=== PATIENT | female | born 1995 | race Caucasian/White ===

== ENCOUNTER 2017-01-07 08:27 | Emergency (ER) | payer MEDICAID ==
[~2017-01-07] VITALS: Ht 165.1 cm; Wt 76.7 kg
[~2017-01-07 08:27] MED LIST: AUGMENTIN1 TA2 PO; BACTRIM DS 8001 TA1 PO; BENADRYL EXTRA1 CRE TP; DIFLUCAN150 MG PO; ETODOLAC400 MG PO; FLEXERIL10 MG PO; KEFLEX 500MG.500 MG PO; MOTRIN400 MG PO; NOMEDS XX; PERCOCET 5/3251 EACH PO; PRENATAL PLUS1 TA1 PO; SEPTRA DS 800 M1 TAB PO; ZOFRAN4 MG PO
--- NOTE | 2017-01-07 08:54 | Emergency Room Report ---
History of Present Illness Time Seen by [id number] Presenting Problem in Triage Pt arrived:Walked Presenting Problem:C/O SQUEEZING PAIN ACROSS CHEST AND UPPER ABD THAT BEGAN APPROX 0730 THAT BEGAN APPROX 1 HOUR AFTER TAKING TYLENOL PT STATES BEGAN HAVING PAIN IN EPIGASTRIC AREA BUT PAIN HAS MOVED ALL OVER CHEST AND ABD SINCE BEGINNING. 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 N Clinical Suspician of Infection? N Mental Status: 1 - Regular (Normal Baseline) Sepsis Risk:Low Sepsis Risk Have you (or family members/close friends) recently traveled outside the [place]? N If Yes, where/when: Have you had exposure to infectious disease within the past month? N TB? Other? Specify: Source patient, RN notes reviewed, RN/MD Exam Limitations no limitations Comment This is a 21-year-old female arriving to the emergency room with midsternal chest pain, that started approximately 30 minutes prior to arrival. Patient stated that she had a panic attack and she was stuck in traffic in [place], at time of said events. She describes the pain as midsternal, radiating to both shoulders, worse with deep inspiration, associated with palpitations and shortness of breath. As the mother fed the patient stated that she has had multiple similar episodes in the past, over the stretcher of several years, but this is the first time she sought medical care for her chest pain. Her PCP wanted to refer her for a cardiology evaluation, per patient as well. Patient has not seen a automotive tire worker yet ALLERGIES Coded Allergies: morphine (HALLUCINATIONS, "PAIN ATTACKS" 01/07/17) Home Medications Reported Medications No Known Home Medications History Medical History General CAD? No Angina: No [place]: No Hypertension? Yes Hyperlipidemia? No CHF? No DVT? No PE? No COPD? No Asthma? No Anemia? No GERD? No Gastric ulcers? No GI Bleed? No Hernia? No Thyroid Problems? No Hypothyroidism? No CVA? No Seizures? No Diabetes? No Renal Insuffiency? No End Stage Renal Disease? No UTI? Yes Stones? Yes BPH? No GB Disease: Yes Nephritic Syndrome? No Asplenia? No Hepatitis? No Sickle Cell Disease? No Arthritis? No Migraines? No Cataracts? No Glaucoma? No MRSA? No HIV? No TB? No Anxiety? No Depression? No Cancer? No More? No Immunization Hx DT/Tetanus 1-4 YRS Flu Refused Pneumonia Never Had Surgical Hx Previous Surgery?Y X1 WISDOM TEETH CHOLEYCYSTECTOMY [place] Hx LMP 2 Months Ago Family History Family Hx Diabetes No CAD No Hypertension No Hyperlipidemia No Cancer Yes TB No Social History Smoking Hx Smoker: Current Every Day Smoker Tobacco: Yes Type Cigarettes Packs/day < 1 Pack Alcohol Alcohol: Yes Review of Systems All Other Systems Reviewed and Negative Cardiovascular chest pain Physical Exam Vital Signs Vital Signs Date Time Temp Pulse Resp B/P Pulse O2 O2 Flow FiO2 Ox Delivery Rate 01/07 1035 98.4 96 20 106/80 98 01/07 0924 85 18 132/69 97 01/07 0827 98.4 67 18 150/87 100 General Appearance normal appearance, WD/WN Neck normal inspection, non-tender, supple, full range of motion Respiratory Status Yes: trachea midline, chest symmetrical, non tender chest. No: respiratory distress. Lung Sounds bilateral: normal breath sounds, lungs clear. Cardiovascular normal exam, regular rate/rhythm, no peripheral edema, no gallop, no JVD, no murmur, no rub, normal peripheral pulses Gastrointestinal normal bowel sounds, normal exam, non tender, soft, no organomegaly Back normal inspection, no CVA tenderness, no vertebral tenderness Neurologic alert, seat nailer II-XII nml as tested, normal exam, oriented x 3 Mental status normal mood/affect Skin intact, normal color, warm/dry Medical Decision Making LABS/Meds/Orders Pt receiving controlled substance in ED? No Comment On reevaluation patient appears medically stable, clinically improved, with no further symptoms. Advised of results obtained, plan is to discharge her home and have her follow-up with our automotive tire worker, Dr. Gregory Clay within 2 days. Patient understands that she will require additional outpatient workup, an echocardiogram, stress test, etc. in order to reach a final diagnosis or rule out a cardiac issue at this time. Results/Orders Laboratory Tests 01/07/17 0840: B-Natriuretic Peptide < 5 01/07/17 0840: Amylase 58, Lipase 87 01/07/17 0840: Sodium 139, Potassium 3.4 L, Chloride 102, Carbon Dioxide 27, BUN 8, Creatinine 0.7, Estimated Creat Clear 153, Estimated GFR (MDRD) 105, Glucose 91, Calcium 9.0, Total Bilirubin 0.3, AST 12 L, ALT 22, Alkaline Phosphatase 94, Creatine Kinase 66, CK-MB (CK-2) Rel Index 0.8, CK and CKMB Interp 0.5, Troponin I < 0.02 , Total Protein 8.7 H, Albumin 4.1, Globulin 4.6 H, Albumin/Globulin Ratio 0.9 L, D-Dimer < 100, WBC 8.1, RBC 5.12, Hgb 15.0, Hct 44.1, MCV 86.1, RDW 12.5, Plt Count 342, MPV 6.1 L, Gran % 29.5 L, Gran # 2.4, Total Counted 100, Lymphocytes % 63.2 H, Monocytes % 4.0, Eosinophils % 2.6, Basophils % 0.8, Neutrophils 31 L, Lymphocytes (Manual) 57 H, Lymphocytes # 5.1 H, Monocytes ( Manual) 5, Monocytes # 0.3, Eosinophils # 0.2, Eosinophils # (Manual) 7 H, Basophils # 0.1, Platelet Estimate NORMAL, PUBS MCHC 33.9, MCH 29.2 Orders Procedure Date/time Status SERUM , QUAL 01/07 0905 Complete D-DIMER 01/07 0902 Complete BRAIN NATRIURETIC PEPTIDE 01/07 0902 Complete LIPASE 01/07 0901 Complete AMYLASE 01/07 0901 Complete ELECTROCARDIOGRAM REQUEST 01/07 0846 Active IV SALINE LOCK 01/07 0846 Active MOISTURE MACHINE TENDER 01/07 0846 Active URINE 01/07 0846 Complete CBC WITH AUTO DIFF 01/07 0846 Complete CARDIAC ENZYMES 01/07 0846 Complete CHEM 12 PROFILE 01/07 0846 Complete DIFFERENTIAL-WBC 01/07 0840 Complete 12 LEAD EKG-BETZAIDA (INITIAL) 01/07 UNK Active CM/EKG CM/defence force senior officer Rhythm Normal Sinus Rhythm Rate 85 Ectopy No Comments No acute ischemic changes EKG rate, NSR, rhythm, no evid. of ischemic chgs, no ectopy, normal QRS, normal LA, normal EKG, no EKG for comparison, non-spec. ST/Twave chgs, ST elevation, ST depression, LBBB, RBBB, ectopy, abnormal Q waves XRAY/CT/US XRAY/CT/US XRAY chest XR interpretation by reviewed by me Xray Results no infiltrates, normal heart size, normal lung inflation aditya Departure Departure Time of Disposition 1024 Disposition DC Home or Self Care(routine) Clinical Impression Primary Impression: Chest pain Qualifiers: Chest pain type: unspecified Qualified Code: R07.9 - Chest pain, unspecified Condition STABLE Referrals Gregory Clay MD: Today after leaving ER Patient Instructions DI for Chest Pain Additional Instructions Please follow-up with Dr. Gregory Clay, at your earliest convenience. Discharge Counseling Counseled pt/family regarding diagnosis, test results, medications/RX, home care, follow up needs Prescriptions Current Visit Scripts No Known Home Medications ED Critical Care Critical Care No at [phone]
--- NOTE | 2017-01-07 08:54 | Emergency Room Report ---
History of Present Illness Time Seen by [id number] Presenting Problem in Triage Pt arrived:Walked Presenting Problem:C/O SQUEEZING PAIN ACROSS CHEST AND UPPER ABD THAT BEGAN APPROX 0730 THAT BEGAN APPROX 1 HOUR AFTER TAKING TYLENOL PT STATES BEGAN HAVING PAIN IN EPIGASTRIC AREA BUT PAIN HAS MOVED ALL OVER CHEST AND ABD SINCE BEGINNING. 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 N Clinical Suspician of Infection? N Mental Status: 1 - Regular (Normal Baseline) Sepsis Risk:Low Sepsis Risk Have you (or family members/close friends) recently traveled outside the [place]? N If Yes, where/when: Have you had exposure to infectious disease within the past month? N TB? Other? Specify: Source patient, RN notes reviewed, RN/MD Exam Limitations no limitations Comment This is a 21-year-old female arriving to the emergency room with midsternal chest pain, that started approximately 30 minutes prior to arrival. Patient stated that she had a panic attack and she was stuck in traffic in [place], at time of said events. She describes the pain as midsternal, radiating to both shoulders, worse with deep inspiration, associated with palpitations and shortness of breath. As the mother fed the patient stated that she has had multiple similar episodes in the past, over the stretcher of several years, but this is the first time she sought medical care for her chest pain. Her PCP wanted to refer her for a cardiology evaluation, per patient as well. Patient has not seen a sustainability executive director yet ALLERGIES Coded Allergies: morphine (HALLUCINATIONS, "PAIN ATTACKS" 01/07/17) Home Medications Reported Medications No Known Home Medications History Medical History General CAD? No Angina: No [place]: No Hypertension? Yes Hyperlipidemia? No CHF? No DVT? No PE? No COPD? No Asthma? No Anemia? No GERD? No Gastric ulcers? No GI Bleed? No Hernia? No Thyroid Problems? No Hypothyroidism? No CVA? No Seizures? No Diabetes? No Renal Insuffiency? No End Stage Renal Disease? No UTI? Yes Stones? Yes BPH? No GB Disease: Yes Nephritic Syndrome? No Asplenia? No Hepatitis? No Sickle Cell Disease? No Arthritis? No Migraines? No Cataracts? No Glaucoma? No MRSA? No HIV? No TB? No Anxiety? No Depression? No Cancer? No More? 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 LMP 2 Months Ago Family History Family Hx Diabetes No CAD No Hypertension No Hyperlipidemia No Cancer Yes TB No Social History Smoking Hx Smoker: Current Every Day Smoker Tobacco: Yes Type Cigarettes Packs/day < 1 Pack Alcohol Alcohol: Yes Review of Systems All Other Systems Reviewed and Negative Cardiovascular chest pain Physical Exam Vital Signs Vital Signs Date Time Temp Pulse Resp B/P Pulse O2 O2 Flow FiO2 Ox Delivery Rate 01/07 1035 98.4 96 20 106/80 98 01/07 0924 85 18 132/69 97 01/07 0827 98.4 67 18 150/87 100 General Appearance normal appearance, WD/WN Neck normal inspection, non-tender, supple, full range of motion Respiratory Status Yes: trachea midline, chest symmetrical, non tender chest. No: respiratory distress. Lung Sounds bilateral: normal breath sounds, lungs clear. Cardiovascular normal exam, regular rate/rhythm, no peripheral edema, no gallop, no JVD, no murmur, no rub, normal peripheral pulses Gastrointestinal normal bowel sounds, normal exam, non tender, soft, no organomegaly Back normal inspection, no CVA tenderness, no vertebral tenderness Neurologic alert, sonographer II-XII nml as tested, normal exam, oriented x 3 Mental status normal mood/affect Skin intact, normal color, warm/dry Medical Decision Making LABS/Meds/Orders Pt receiving controlled substance in ED? No Comment On reevaluation patient appears medically stable, clinically improved, with no further symptoms. Advised of results obtained, plan is to discharge her home and have her follow-up with our sustainability executive director, Dr. Gregory Clay within 2 days. Patient understands that she will require additional outpatient workup, an echocardiogram, stress test, etc. in order to reach a final diagnosis or rule out a cardiac issue at this time. Results/Orders Laboratory Tests 01/07/17 0840: B-Natriuretic Peptide < 5 01/07/17 0840: Amylase 58, Lipase 87 01/07/17 0840: Sodium 139, Potassium 3.4 L, Chloride 102, Carbon Dioxide 27, BUN 8, Creatinine 0.7, Estimated Creat Clear 153, Estimated GFR (MDRD) 105, Glucose 91, Calcium 9.0, Total Bilirubin 0.3, AST 12 L, ALT 22, Alkaline Phosphatase 94, Creatine Kinase 66, CK-MB (CK-2) Rel Index 0.8, CK and CKMB Interp 0.5, Troponin I < 0.02 , Total Protein 8.7 H, Albumin 4.1, Globulin 4.6 H, Albumin/Globulin Ratio 0.9 L, D-Dimer < 100, WBC 8.1, RBC 5.12, Hgb 15.0, Hct 44.1, MCV 86.1, RDW 12.5, Plt Count 342, MPV 6.1 L, Gran % 29.5 L, Gran # 2.4, Total Counted 100, Lymphocytes % 63.2 H, Monocytes % 4.0, Eosinophils % 2.6, Basophils % 0.8, Neutrophils 31 L, Lymphocytes (Manual) 57 H, Lymphocytes # 5.1 H, Monocytes ( Manual) 5, Monocytes # 0.3, Eosinophils # 0.2, Eosinophils # (Manual) 7 H, Basophils # 0.1, Platelet Estimate NORMAL, PUBS MCHC 33.9, MCH 29.2 Orders Procedure Date/time Status SERUM , QUAL 01/07 0905 Complete D-DIMER 01/07 0902 Complete BRAIN NATRIURETIC PEPTIDE 01/07 0902 Complete LIPASE 01/07 0901 Complete AMYLASE 01/07 0901 Complete ELECTROCARDIOGRAM REQUEST 01/07 0846 Active IV SALINE LOCK 01/07 0846 Active DIRECTOR OF PSYCHIATRY 01/07 0846 Active URINE 01/07 0846 Complete CBC WITH AUTO DIFF 01/07 0846 Complete CARDIAC ENZYMES 01/07 0846 Complete CHEM 12 PROFILE 01/07 0846 Complete DIFFERENTIAL-WBC 01/07 0840 Complete 12 LEAD EKG-BETZAIDA (INITIAL) 01/07 UNK Active CM/EKG CM/containers sales representative Rhythm Normal Sinus Rhythm Rate 85 Ectopy No Comments No acute ischemic changes EKG rate, NSR, rhythm, no evid. of ischemic chgs, no ectopy, normal QRS, normal IN, normal EKG, no EKG for comparison, non-spec. ST/Twave chgs, ST elevation, ST depression, LBBB, RBBB, ectopy, abnormal Q waves XRAY/CT/US XRAY/CT/US XRAY chest XR interpretation by reviewed by me Xray Results no infiltrates, normal heart size, normal lung inflation aditya Departure Departure Time of Disposition 1024 Disposition DC Home or Self Care(routine) Clinical Impression Primary Impression: Chest pain Qualifiers: Chest pain type: unspecified Qualified Code: R07.9 - Chest pain, unspecified Condition STABLE Referrals Gregory Clay MD: Today after leaving ER Patient Instructions DI for Chest Pain Additional Instructions Please follow-up with Dr. Gregory Clay, at your earliest convenience. Discharge Counseling Counseled pt/family regarding diagnosis, test results, medications/RX, home care, follow up needs Prescriptions Current Visit Scripts No Known Home Medications ED Critical Care Critical Care No at [id number]
[2017-01-07 09:05] LABS: LYMPH # 5.1 K/mm3 (0.7-4.5); LYMPH % 63.2 % (10-50.0)
[2017-01-07 09:21] LABS: BUN 8 mg/dL (7-18); GFR (ESTIMATED) 105 ML/MIN (59-)
[2017-01-07 09:22] LABS: NEUTROPHILS 31 % (42-76)
[2017-01-07 10:35] VITALS: BP 106/80
--- NOTE | 2017-01-07 15:50 | RADIOLOGY REPORT PS360 ---
CHEST(2 VIEWS-NOT PORTABLE) HISTORY: CHEST PAIN ORDERING PHYSICIAN: Reed Granados MD PATIENT AGE: 21 years COMPARISON: 03/03/2013 FINDINGS: The cardiomediastinal silhouette and pulmonary vascularity are within normal limits. The lungs are clear without infiltrates, suspicious nodules, or pleural effusions. No acute bony abnormalities. IMPRESSION: Negative chest, no acute finding
== END 2017-01-07 10:35 | disposition home or self-care (01) ==
LOC: ER 08:27
PROVIDERS: Emergency Medicine
DX: R07.9 Chest pain, unspecified (principal); I10 Essential (primary) hypertension

== ENCOUNTER 2017-07-19 20:48 | Emergency (ER) | payer MEDICAID ==
[~2017-07-19] VITALS: Ht 165.1 cm; Wt 821.0 kg
[~2017-07-19 20:48] MED LIST changes: +AMOXICILLIN 50500 MG PO
--- NOTE | 2017-07-19 21:14 | Urgent Treatment Center Report ---
History of Present Issue Date/Time Seen by Provider 07/19/172109 Visit Reason Pt arrived:Walked Presenting Problem:PT REQUESTING TEST Location if Accident: Onset of symptoms date/time:07/19/17 or onset unknown for: Have you (or family members/close friends) recently traveled outside the [place]? N If Yes, where/when: Have you had exposure to infectious disease within the past month? TB? Other? Specify: Patient state that she has paraguard in place States that she is having the same symptoms that she was having the last time that she was and she was worried that she may be . States that she has not had a period in over 2 weeks and she decided to come in [facility] and get checked ALLERGIES Coded Allergies: morphine (HALLUCINATIONS, "PAIN ATTACKS" 01/07/17) Home Medications Active Scripts Amoxicillin Trihydrate (Amoxicillin 500MG) 500 MG PO BID 10 Days Prov: 05/03/17 History Medical History General CAD? No Angina: No [place]: No Hypertension? Yes Hyperlipidemia? No CHF? No DVT? No PE? No COPD? No Asthma? No Anemia? No GERD? No Gastric ulcers? No GI Bleed? No Hernia? No Thyroid Problems? No Hypothyroidism? No CVA? No Seizures? No Diabetes? No Renal Insuffiency? No UTI? Yes Stones? Yes BPH? No GB Disease: Yes Nephritic Syndrome? No Asplenia? No Hepatitis? No Sickle Cell Disease? No Arthritis? No Migraines? No Cataracts? No Glaucoma? No MRSA? No HIV? No TB? No Anxiety? No Depression? No Cancer? No More? No Immunization HX DT/Tetanus 5-10 Years Ago Flu Refused Pneumonia Never Had Surgical Hx Previous Surgery?Y X1 WISDOM TEETH CHOLEYCYSTECTOMY Family History Family HX Diabetes No CAD No Hypertension No Hyperlipidemia No Cancer Yes TB No Social History Smoking Hx Smoker: Never Smoker Tobacco: No Packs/day < 1 Pack Alcohol Alcohol: Yes Review of Systems All Other Systems Reviewed and Negative Comment Nausea, lower back pain, and states that she is having pregnacy like symptoms so she came in to get checked Physical Exam Vital Signs Vital Signs Date Time Temp Pulse Resp B/P Pulse O2 O2 Flow FiO2 Ox Delivery Rate 07/197 98.2 94 20 144/76 100 General Appearance normal appearance, WD/WN, no apparent distress Respiratory Status Yes: trachea midline, chest symmetrical, non tender chest. No: respiratory distress. Cardiovascular normal exam, regular rate/rhythm, no peripheral edema, no gallop Neurologic alert, sales order specialist II-XII nml as tested, normal exam, no motor/sensory deficits, oriented x 3 Comments Patient states that she is having pregnacy like symptoms, nausea pain in her lower back and abdomen at times, Two weeks late for her menstral period, and pressure in her vagina at times Medical Decision Making LABS/Meds/Orders Pt receiving controlled substance in ED? No Results/Orders Laboratory Tests 07/19/172114: Urine Color YELLOW, Urine Appearance CLEAR, Urine pH 7.0, Ur Specific [place] 1.020, Urine Protein NEGATIVE, Urine Ketones NEGATIVE, Urine Blood NEGATIVE, Urine Nitrate NEGATIVE, Urine Bilirubin NEGATIVE, Urine Urobilinogen 1.0, Ur Leukocyte Esterase NEGATIVE, Urine Glucose NEGATIVE 07/19/172110: Beta HCG, Quant < 1 Orders Procedure Date/time Status [facility] URINE DIPSTICK 07/19 2115 Complete BETA-HCG, QUANT 07/19 2111 Complete Progress [facility] Progress Notes Date 07/19/17 Time 2142 Comment Patient results negative on both urine and blood patient advised Departure Departure Time of Disposition 2142 Disposition DC Home or Self Care(routine) Clinical Impression Primary Impression: Negative test Condition STABLE Referrals Gonzalez CHACON,Juan Antonio [place] Additional Instructions Follow up with Dr Roth if symptoms persist Follow up with family doctor Return if needed Drink plenty of fluids Discharge Counseling Counseled pt/family regarding diagnosis, home care, follow up needs at 2148
--- NOTE | 2017-07-19 21:14 | Urgent Treatment Center Report ---
History of Present Issue Date/Time Seen by Provider 07/19/172109 Visit Reason Pt arrived:Walked Presenting Problem:PT REQUESTING TEST Location if Accident: Onset of symptoms date/time:07/19/17 or onset unknown for: Have you (or family members/close friends) recently traveled outside the [place]? N If Yes, where/when: Have you had exposure to infectious disease within the past month? TB? Other? Specify: Patient state that she has paraguard in place States that she is having the same symptoms that she was having the last time that she was and she was worried that she may be . States that she has not had a period in over 2 weeks and she decided to [facility] and get checked ALLERGIES Coded Allergies: morphine (HALLUCINATIONS, "PAIN ATTACKS" 01/07/17) Home Medications Active Scripts Amoxicillin Trihydrate (Amoxicillin 500MG) 500 MG PO BID 10 Days Prov: 05/03/17 History Medical History General CAD? No Angina: No [place]: No Hypertension? Yes Hyperlipidemia? No CHF? No DVT? No PE? No COPD? No Asthma? No Anemia? No GERD? No Gastric ulcers? No GI Bleed? No Hernia? No Thyroid Problems? No Hypothyroidism? No CVA? No Seizures? No Diabetes? No Renal Insuffiency? No UTI? Yes Stones? Yes BPH? No GB Disease: Yes Nephritic Syndrome? No Asplenia? No Hepatitis? No Sickle Cell Disease? No Arthritis? No Migraines? No Cataracts? No Glaucoma? No MRSA? No HIV? No TB? No Anxiety? No Depression? No Cancer? No More? No Immunization HX DT/Tetanus 5-10 Years Ago Flu Refused Pneumonia Never Had Surgical Hx Previous Surgery?Y X1 WISDOM TEETH CHOLEYCYSTECTOMY Family History Family HX Diabetes No CAD No Hypertension No Hyperlipidemia No Cancer Yes TB No Social History Smoking Hx Smoker: Never Smoker Tobacco: No Packs/day < 1 Pack Alcohol Alcohol: Yes Review of Systems All Other Systems Reviewed and Negative Comment Nausea, lower back pain, and states that she is having pregnacy like symptoms so she came in to get checked Physical Exam Vital Signs Vital Signs Date Time Temp Pulse Resp B/P Pulse O2 O2 Flow FiO2 Ox Delivery Rate 07/197 98.2 94 20 144/76 100 General Appearance normal appearance, WD/WN, no apparent distress Respiratory Status Yes: trachea midline, chest symmetrical, non tender chest. No: respiratory distress. Cardiovascular normal exam, regular rate/rhythm, no peripheral edema, no gallop Neurologic alert, content development manager II-XII nml as tested, normal exam, no motor/sensory deficits, oriented x 3 Comments Patient states that she is having pregnacy like symptoms, nausea pain in her lower back and abdomen at times, Two weeks late for her menstral period, and pressure in her vagina at times Medical Decision Making LABS/Meds/Orders Pt receiving controlled substance in ED? No Results/Orders Laboratory Tests 07/19/172114: Urine Color YELLOW, Urine Appearance CLEAR, Urine pH 7.0, Ur Specific [place] 1.020, Urine Protein NEGATIVE, Urine Ketones NEGATIVE, Urine Blood NEGATIVE, Urine Nitrate NEGATIVE, Urine Bilirubin NEGATIVE, Urine Urobilinogen 1.0, Ur Leukocyte Esterase NEGATIVE, Urine Glucose NEGATIVE 07/19/172110: Beta HCG, Quant < 1 Orders Procedure Date/time Status [facility] URINE DIPSTICK 07/19 2115 Complete BETA-HCG, QUANT 07/19 2111 Complete Progress [facility] Progress Notes Date 07/19/17 Time 2142 Comment Patient results negative on both urine and blood patient advised Departure Departure Time of Disposition 2142 Disposition DC Home or Self Care(routine) Clinical Impression Primary Impression: Negative test Condition STABLE Referrals Gonzalez CHACON,Juan Antonio [place] Additional Instructions Follow up with Dr Roth if symptoms persist Follow up with family doctor Return if needed Drink plenty of fluids Discharge Counseling Counseled pt/family regarding diagnosis, home care, follow up needs at 2140
[2017-07-19 21:26] LABS: URINE BILIRUBIN - DIPSTICK NEGATIVE (NEG); URINE BLOOD NEGATIVE (NEG)
[2017-07-19 21:46] VITALS: BP 144/76
== END 2017-07-19 21:47 | disposition home or self-care (01) ==
LOC: UTC 20:48
PROVIDERS: Nurse Practitioner
DX: M54.5 Low back pain (principal); Z32.02 Encounter for pregnancy test, result negative